=== PATIENT | female | born 2000 | race Caucasian/White ===

== ENCOUNTER 2019-06-11 16:50 | Emergency (ER) | payer BC ==
[2019-06-11] MEDS ORDERED: HYDROmorphone 1 MG/ML Syringe IM ONE (18:36)
[2019-06-11] MEDS ORDERED: Ketorolac 60 MG/2 ML SDV IM ONE (18:37)
--- NOTE | 2019-06-11 18:42 | EDM.PDOC ---
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 She did not hit her head or hurt her neck. She has pin to her tail bone and to her low back. She had some sciatica in the past. She has no pain shooting down her leg. She has no numbness or weakness. She has no bowel or bladder symptoms. Onset: Sudden Duration: Hour(s): Location: Reports: Back (and tailbone) Quality: Reports: Sharp Severity: Severe Improves with: Reports: Immobilization Worsens with: Reports: Movement Context: Reports: Trauma (Slipped and fell) Associated Symptoms: Reports: No Other Symptoms Lower Sacral Pain Score (Numeric/FACES): 9 - Related Data Allergies Allergy/AdvReac Type Severity Reaction Status Date / Time amoxicillin Allergy Hives Verified 06/11/19 17:09 Penicillins Allergy Hives Verified 06/11/19 17:09 Home Meds: Home Meds . [No Known Home Meds] 06/11/19 [History] Past Medical History - Past Surgical History GI Surgical History: Reports: Appendectomy Social & Family History - Tobacco Use Smoking Status *Q: Never Smoker - Caffeine Use Caffeine Use: Reports: Soda - Recreational Drug Use Recreational Drug Use: No ED ROS GENERAL - Review of Systems Review Of Systems: See Below Constitutional: Reports: No Symptoms HEENT: Reports: No Symptoms Respiratory: Reports: No Symptoms Cardiovascular: Reports: No Symptoms Endocrine: Reports: No Symptoms GI/Abdominal: Reports: No Symptoms : Reports: No Symptoms Musculoskeletal: Reports: Back Pain (and tail bone) ED EXAM,LOWER BACK PAIN/INJURY - Physical Exam Exam: See Below Exam Limited By: No Limitations General Appearance: Alert, No Apparent Distress Ears: Normal External Exam Nose: Normal Inspection Head: Atraumatic, Normocephalic Neck: Normal Inspection, Supple Respiratory/Chest: No Respiratory Distress, Lungs Clear, Normal Breath Sounds Cardiovascular: Regular Rate, Rhythm, No Edema, No Murmur GI/Abdominal: Soft, Non-Tender, No Organomegaly, No Mass Back Exam: Other (Pain upon palpation to the lumbar spine with pain to the coccyx.) Extremities: Normal Inspection Neurological: No Motor/Sensory Deficits, Oriented x 3 Course - Vital Signs Last Recorded V/S: Last Vital Signs Temp 97.2 F 06/11/19 17:07 Pulse 62 06/11/19 17:07 Resp 16 06/11/19 17:07 BP 105/63 06/11/19 17:07 Pulse Ox 99 06/11/19 17:07 - Orders/Labs/Meds Orders: Active Orders 24 hr Category Date Time Status Lumbar Spine 2 or 3V [CR] Stat Exams 06/11/19 17:52 Taken Sacrum Coccyx Min 2V [CR] Stat Exams 06/11/19 17:52 Taken HYDROmorphone [Dilaudid] Med 06/11/19 18:36 Once 1 mg IM ONETIME ONE Ketorolac [Toradol] Med 06/11/19 18:37 Once 60 mg IM ONETIME ONE - Re-Assessments/Exams Free Text/Narrative Re-Assessment/Exam: 06/11/19 18:40 I ordered an x-ray of her lumbar spine and sacrum and coccyx. He lumbar spine is negative. Her sacrum and coccyx shows a fracture of the tip of the coccyx. I have ordered a shot of dilaudid 1mg IM and toradol 60mg IM. I will give her something for pain at home. Departure - Departure Time of Disposition: 18:45 Disposition: Home, Self-Care 01 Condition: Good Clinical Impression: Fall Qualifiers: Encounter type: initial encounter Qualified Code(s): W19.XXXA - Unspecified fall, initial encounter Low back pain Qualifiers: Chronicity: acute Back pain laterality: bilateral Sciatica presence: without sciatica Qualified Code(s): M54.5 - Low back pain Fractured coccyx Qualifiers: Encounter type: initial encounter Fracture type: closed Qualified Code(s): S32.2XXA - Fracture of coccyx, initial encounter for closed fracture - Discharge Information *PRESCRIPTION DRUG MONITORING PROGRAM REVIEWED*: No *COPY OF PRESCRIPTION DRUG MONITORING REPORT IN PATIENT DAVID: No Referrals: PCP,None [Primary Care Provider] - Jesus Aragon PA-C [Physician Lock Up Worker] - 1 Week Additional Instructions: Ice the areas that hurt for 15 minutes 3 times per day for 2 days. Take tylenol or motrin for pain. If that does not help, take the flexeril a muscle relaxer or hydrocodone for pain. Get a donut pillow to sit on. Please return if you are worse. Sepsis Event Note - Evaluation Sepsis Screening Result: No Definite Risk - Focused Exam Vital Signs: Vital Signs Temp Pulse Resp BP Pulse Ox 06/11/19 17:07 97.2 F 62 16 105/63 99 Date Exam was Performed: 06/11/19 Time Exam was Performed: 18:37 - My Orders Last 24 Hours: My Active Orders 06/11/19 17:52 Lumbar Spine 2 or 3V [CR] Stat Sacrum Coccyx Min 2V [CR] Stat 06/11/19 18:36 HYDROmorphone [Dilaudid] 1 mg IM ONETIME ONE 06/11/19 18:37 Ketorolac [Toradol] 60 mg IM ONETIME ONE - Assessment/Plan Last 24 Hours: My Active Orders 06/11/19 17:52 Lumbar Spine 2 or 3V [CR] Stat Sacrum Coccyx Min 2V [CR] Stat 06/11/19 18:36 HYDROmorphone [Dilaudid] 1 mg IM ONETIME ONE 06/11/19 18:37 Ketorolac [Toradol] 60 mg IM ONETIME ONE
--- NOTE | 2019-06-12 10:51 | CR ---
Lumbar spine: AP and lateral views of the lumbar spine were obtained. Comparison: No prior lumbar spine imaging. Vertebral body heights and disc spaces are maintained. Pedicles are intact. Visualized transverse and spinous processes are intact. No subluxation or fracture is seen. Impression: 1. No abnormality is identified on two-view lumbar spine study. Diagnostic code #1 This report was dictated in [place] Standard Time
--- NOTE | 2019-06-12 10:51 | CR ---
Sacrum and coccyx: Three views of the sacrum and coccyx were obtained. Comparison: No previous study. Mild joint space narrowing within the left sacroiliac joint as compared to the right side felt compatible with mild sacroiliitis. No acute fracture, dislocation or other bony abnormality is seen. Impression: 1. Findings suggest mild unilateral sacroiliitis on the left side. Please correlate if patient has any symptoms to this area. 2. No acute fracture is appreciated. Diagnostic code #2 This report was dictated in [place] Standard Time
== END 2019-06-11 19:11 | disposition home or self-care (01) ==
LOC: JD.ED 16:50
DX: S32.2XXA Fracture of coccyx, initial encounter for closed fracture (principal); Z88.0 Allergy status to penicillin; Z88.1 Allergy status to other antibiotic agents; V58.4XXA Person boarding or alighting a pick-up truck or van injured in noncollision transport accident, initial encounter
CPT/HCPCS: 72100; 72220; 96372; 99283; J1170; J1885

== ENCOUNTER 2019-12-26 13:15 | Emergency (ER) | payer BC ==
[2019-12-26] MEDS ORDERED: Sodium Chloride 0.9% 1,000 ML IV STA (13:41)
[2019-12-26] MEDS ORDERED: Sodium Chloride 0.9% 10 ML Syringe FLUSH PRN (13:41)
[2019-12-26] MEDS ORDERED: Ondansetron 4 MG/2 ML SDV IVPUSH ONE (13:41)
[2019-12-26] MEDS ORDERED: HYDROmorphone 1 MG/ML Syringe IVPUSH ONE (13:42)
--- NOTE | 2019-12-26 15:34 | EDM.PDOC ---
ED HPI GENERAL MEDICAL PROBLEM - General Chief Complaint: Gastrointestinal Problem Stated Complaint: VOMITING,DIARRHEA,ABD PAIN AND NAUSEA Time Seen by Provider: 12/26/19 13:38 Source of Information: Reports: Patient History Limitations: Reports: No Limitations - History of Present Illness INITIAL COMMENTS - FREE TEXT/NARRATIVE: The patient presents with generalized abdominal pain, nausea or vomiting. This started this morning. She has chills but no fever. She has body aches also. She has no cough, congestion, runny nose, chest pain or shortness of breath. She has no dysuria or diarrhea. She has no appendix. At one time her doctor thought she had endometriosis. She was checked and that was negative. She will get abdominal pain like this at times. Onset: Gradual Duration: Hour(s): Location: Reports: Abdomen Quality: Reports: Sharp Severity: Moderate Improves with: Reports: None Worsens with: Reports: None Associated Symptoms: Reports: Fever/Chills, Nausea/Vomiting. 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 Denies: Fever HEENT: Reports: No Symptoms Respiratory: Reports: No Symptoms Cardiovascular: Reports: No Symptoms Endocrine: Reports: No Symptoms GI/Abdominal: Reports: Abdominal Pain, Nausea, Vomiting. Denies: Diarrhea : Reports: No Symptoms Musculoskeletal: Reports: No Symptoms Skin: Reports: No Symptoms ED EXAM, GI/ABD - Physical Exam Exam: See Below Exam Limited By: No Limitations General Appearance: Alert, No Apparent Distress Ears: Normal External Exam Nose: Normal Inspection Head: Atraumatic, Normocephalic Neck: Normal Inspection Respiratory/Chest: No Respiratory Distress, Lungs Clear, Normal Breath Sounds Cardiovascular: Regular Rate, Rhythm, No Edema, No Murmur GI/Abdominal Exam: Soft, No Organomegaly, No Mass, Tender (Mild generalied tenderness) Course - Vital Signs Last Recorded V/S: Last Vital Signs Temp 101.7 F H 12/26/19 14:28 Pulse 85 12/26/19 14:28 Resp 18 12/26/19 14:28 BP 99/54 L 12/26/19 14:28 Pulse Ox 98 12/26/19 14:28 - Orders/Labs/Meds Orders: Active Orders 24 hr Category Date Time Status Peripheral IV Care [RC] . DIRECTED Care 12/26/19 13:41 Active WET PREP [MYC] Stat Lab 12/26/19 15:30 Received Sodium Chloride 0.9% [Saline Flush] Med 12/26/19 13:41 Active 10 ml FLUSH ASDIRECTED PRN ED Antiemetic Medication Reflex [OM.PC] Stat Oth 12/26/19 13:41 Ordered Peripheral IV Insertion Adult [OM.PC] Stat Oth 12/26/19 13:41 Ordered Medication Orders Sodium Chloride (Saline Flush) 10 ml FLUSH ASDIRECTED PRN PRN Reason: Keep Vein Open Last Admin: 12/26/19 14:24 Dose: 10 ml Documented by: CHRIS Labs: Laboratory Tests 12/26/19 12/26/19 12/26/19 Range/Units 13:41 14:10 14:10 WBC 10.00 (3.98-10.04) K/mm3 RBC 4.68 (3.98-5.22) M/mm3 Hgb 12.8 (11.2-15.7) gm/dl Hct 39.2 (34.1-44.9) % MCV 83.8 (79.4-94.8) fl MCH 27.4 (25.6-32.2) pg MCHC 32.7 (32.2-35.5) g/dl RDW Std Deviation 41.1 (36.4-46.3) fL Plt Count 347 D (182-369) K/mm3 MPV 9.5 (9.4-12.3) fl Neut % (Auto) 92.1 H (34.0-71.1) % Lymph % (Auto) 4.6 L (19.3-51.7) % [place] % (Auto) 3.1 L (4.7-12.5) % Eos % (Auto) 0 L (0.7-5.8) Baso % (Auto) 0.0 L (0.1-1.2) % Neut # (Auto) 9.21 H (1.56-6.13) K/mm3 Lymph # (Auto) 0.46 L (1.18-3.74) K/mm3 [place] # (Auto) 0.31 (0.24-0.36) K/mm3 Eos # (Auto) 0.00 L (0.04-0.36) K/mm3 Baso # (Auto) 0.00 L (0.01-0.08) K/mm3 Manual Slide Review Abnormal smear Sodium 138 (136-145) mEq/L Potassium 3.6 (3.5-5.1) mEq/L Chloride 103 (98-107) mEq/L Carbon Dioxide 26 (21-32) mEq/L Anion Gap 12.6 (5-15) BUN 11 (7-18) mg/dL Creatinine 0.9 (0.55-1.02) mg/dL Est Cr Clr Drug Dosing 89.72 mL/min Estimated GFR (MDRD) > 60 (>60) mL/min BUN/Creatinine Ratio 12.2 L (14-18) Glucose 87 (74-106) mg/dL Calcium 9.0 (8.5-10.1) mg/dL Total Bilirubin 0.5 (0.2-1.0) mg/dL AST 14 L (15-37) U/L ALT 18 (14-59) U/L Alkaline Phosphatase 99 (46-116) U/L Total Protein 7.6 (6.4-8.2) g/dl Albumin 3.7 (3.4-5.0) g/dl Globulin 3.9 gm/dL Albumin/Globulin Ratio 1.0 (1-2) Lipase 58 L (73-393) U/L HCG, Qual (NEGATIVE) Urine Color Yellow (Yellow) Urine Appearance Clear (Clear) Urine pH 6.5 (5.0-8.0) Ur Specific [place] > or = 1.030 (1.005-1.030) Urine Protein Negative (Negative) Urine Glucose (UA) Negative (Negative) Urine Ketones 2+ H (Negative) Urine Occult Blood Negative (Negative) Urine Nitrite Negative (Negative) Urine Bilirubin 1+ H (Negative) Urine Urobilinogen 1.0 (0.2-1.0) Ur Leukocyte Esterase 3+ H (Negative) Urine RBC 0-5 (0-5) /hpf Urine WBC 10-20 H (0-5) /hpf Ur Squamous Epith Cells 0-5 (0-5) /hpf Amorphous Sediment Many H (NOT SEEN) /hpf Urine Bacteria Few (FEW) /hpf Urine Mucus Rare (FEW) /hpf 12/26/19 Range/Units 14:10 WBC (3.98-10.04) K/mm3 RBC (3.98-5.22) M/mm3 Hgb (11.2-15.7) gm/dl Hct (34.1-44.9) % MCV (79.4-94.8) fl MCH (25.6-32.2) pg MCHC (32.2-35.5) g/dl RDW Std Deviation (36.4-46.3) fL Plt Count (182-369) K/mm3 MPV (9.4-12.3) fl Neut % (Auto) (34.0-71.1) % Lymph % (Auto) (19.3-51.7) % [place] % (Auto) (4.7-12.5) % Eos % (Auto) (0.7-5.8) Baso % (Auto) (0.1-1.2) % Neut # (Auto) (1.56-6.13) K/mm3 Lymph # (Auto) (1.18-3.74) K/mm3 [place] # (Auto) (0.24-0.36) K/mm3 Eos # (Auto) (0.04-0.36) K/mm3 Baso # (Auto) (0.01-0.08) K/mm3 Manual Slide Review Sodium (136-145) mEq/L Potassium (3.5-5.1) mEq/L Chloride (98-107) mEq/L Carbon Dioxide (21-32) mEq/L Anion Gap (5-15) BUN (7-18) mg/dL Creatinine (0.55-1.02) mg/dL Est Cr Clr Drug Dosing mL/min Estimated GFR (MDRD) (>60) mL/min BUN/Creatinine Ratio (14-18) Glucose (74-106) mg/dL Calcium (8.5-10.1) mg/dL Total Bilirubin (0.2-1.0) mg/dL AST (15-37) U/L ALT (14-59) U/L Alkaline Phosphatase (46-116) U/L Total Protein (6.4-8.2) g/dl Albumin (3.4-5.0) g/dl Globulin gm/dL Albumin/Globulin Ratio (1-2) Lipase (73-393) U/L HCG, Qual Negative (NEGATIVE) Urine Color (Yellow) Urine Appearance (Clear) Urine pH (5.0-8.0) Ur Specific [place] (1.005-1.030) Urine Protein (Negative) Urine Glucose (UA) (Negative) Urine Ketones (Negative) Urine Occult Blood (Negative) Urine Nitrite (Negative) Urine Bilirubin (Negative) Urine Urobilinogen (0.2-1.0) Ur Leukocyte Esterase (Negative) Urine RBC (0-5) /hpf Urine WBC (0-5) /hpf Ur Squamous Epith Cells (0-5) /hpf Amorphous Sediment (NOT SEEN) /hpf Urine Bacteria (FEW) /hpf Urine Mucus (FEW) /hpf Meds: Medications Generic Name Dose Route Start Last Admin Trade Name Freq PRN Reason Stop Dose Admin Sodium Chloride 10 ml 12/26/19 13:41 12/26/19 14:24 Saline Flush FLUSH 10 ml ASDIRECTED PRN Administration Keep Vein Open Discontinued Medications Generic Name Dose Route Start Last Admin Trade Name Freq PRN Reason Stop Dose Admin Hydromorphone HCl 1 mg 12/26/19 13:42 12/26/19 14:22 Dilaudid IVPUSH 12/26/19 13:43 1 mg ONETIME ONE Administration Sodium Chloride 1,000 mls @ 1,000 mls/hr 12/26/19 13:41 12/26/19 14:24 Normal Saline IV 12/26/19 14:40 1,000 mls/hr .BOLUS STA Administration Ondansetron HCl 4 mg 12/26/19 13:41 12/26/19 14:20 Zofran IVPUSH 12/26/19 13:42 4 mg ONETIME ONE Administration - Re-Assessments/Exams Free Text/Narrative Re-Assessment/Exam: 12/26/19 15:39 I ordered an IV NS 1L bolus, zofran 4mg IV, dilaudid 1mg IV, labs and UA. Her CBC and CMP look good. Her UA shows a UTI. She felt like she had a yeast infection. I ordered a Wet Prep. Departure - Departure Time of Disposition: 16:15 Disposition: Home, Self-Care 01 Condition: Good Clinical Impression: UTI, Urinary tract infectious disease - Discharge Information *PRESCRIPTION DRUG MONITORING PROGRAM REVIEWED*: Not Applicable *COPY OF PRESCRIPTION DRUG MONITORING REPORT IN PATIENT DAVID: Not Applicable Prescriptions: cephALEXin [Keflex] 500 mg PO BID #10 capsule Ondansetron [Zofran ODT] 4 mg PO Q6H PRN #20 tab.dis PRN Reason: Nausea\vomiting Referrals: Jennifer Valle SEATING CAPTAIN [Primary Care Provider] - Forms: ED Department Discharge Additional Instructions: Drink plenty of fluids. Take keflex 2 times daily for 5 days. Take the zofran every 6 hours as needed for nausea and vomiting. Please return if you are worse. Sepsis Event Note (ED) - Evaluation Sepsis Screening Result: No Definite Risk - Focused Exam Vital Signs: Vital Signs Temp Pulse Resp BP Pulse Ox 12/26/19 14:28 101.7 F H 85 18 99/54 L 98 12/26/19 13:39 99.1 F 90 16 117/67 98 - My Orders Last 24 Hours: My Active Orders 12/26/19 13:41 Peripheral IV Care [RC] . DIRECTED Sodium Chloride 0.9% [Saline Flush] 10 ml FLUSH ASDIRECTED PRN ED Antiemetic Medication Reflex [OM.PC] Stat Peripheral IV Insertion Adult [OM.PC] Stat 12/26/19 15:30 WET PREP [MYC] Stat - Assessment/Plan Last 24 Hours: My Active Orders 12/26/19 13:41 Peripheral IV Care [RC] . DIRECTED Sodium Chloride 0.9% [Saline Flush] 10 ml FLUSH ASDIRECTED PRN ED Antiemetic Medication Reflex [OM.PC] Stat Peripheral IV Insertion Adult [OM.PC] Stat 12/26/19 15:30 WET PREP [MYC] Stat
[2019-12-26] MEDS ORDERED: Fluconazole 150 MG Tab PO ONE (16:28)
[2019-12-26] MEDS ORDERED: Acetaminophen 325 MG Tab PO ONE (16:51)
== END 2019-12-26 17:00 | disposition home or self-care (01) ==
LOC: JD.ED 13:15
DX: N39.0 Urinary tract infection, site not specified (principal); Z87.891 Personal history of nicotine dependence; Z90.49 Acquired absence of other specified parts of digestive tract; Z88.1 Allergy status to other antibiotic agents; Z88.0 Allergy status to penicillin
CPT/HCPCS: 36415; 80053; 81001; 83690; 84703; 85025; 87210; 87808; 96361; 96374; 96375; 99284; A9270; J1170; J2405; J7030

== ENCOUNTER 2020-01-12 14:13 | Emergency (ER) | payer BC ==
[2020-01-12] MEDS ORDERED: Clindamycin Phosphate in D5W 900 MG in Premix Bag 1 BAG IV ONE ×2 (14:21)
[2020-01-12] MEDS ORDERED: Sodium Chloride 0.9% 10 ML Syringe FLUSH PRN (14:21)
[2020-01-12] MEDS ORDERED: Sodium Chloride 0.9% 1,000 ML IV ONE (14:22)
[2020-01-12] MEDS ORDERED: Ondansetron 4 MG/2 ML SDV IVPUSH ONE (14:22)
[2020-01-12] MEDS ORDERED: HYDROmorphone 0.5 MG/0.5 ML Syringe IVPUSH ONE (15:18)
--- NOTE | 2020-01-12 15:27 | EDM.PDOC ---
ED HPI GENERAL MEDICAL PROBLEM - General Chief Complaint: ENT Problem Stated Complaint: SORE THROAT/TONSILS Time Seen by Provider: 01/12/20 14:20 Source of Information: Reports: Patient, Provider (Kathy Retana from [facility]), RN Notes Reviewed History Limitations: Reports: No Limitations - History of Present Illness INITIAL COMMENTS - FREE TEXT/NARRATIVE: Patient is a 19-year-old female who presents to the ED for evaluation of sore throat and tonsillitis. Patient was diagnosed with right-sided tonsillitis yesterday at the [facility] by Christie Retana, she was given a shot of Rocephin, and then sent home with a azithromycin. Patient states she took her a azithromycin this morning, but said about an hour later, she began to feel overly nauseous and was not able to keep the antibiotics down, she did call the provider, who had her come back into the clinic to be seen, and they decided they needed to send her here for further management. Patient states her throat feels like it is more swollen today, she does note a slight fever at home, a cough, along with a sore throat. Patient does note that she has a history of tonsil stones, but she states this is exquisitely worse. She has not really been able to eat much of anything for the past 3 days due to the pain and swelling. Patient states that she has to breathe through her mouth, she is very congested nasally and it is making her hard to breathe. Patient denies any possible COVID exposures, but has not been tested for this as well. Patient states there is some pain radiating into her ear as well. Christie Retana did call ENT in [place], and they recommended getting clindamycin, 900 IV, and then sending patient home with 450 mg 3 times daily orally;if deemed fit for outpatient management, along with a throat culture for further evaluation. Patient also notes that her daughter has been recently diagnosed Haemophilus parainfluenza; and has been treated, but her daughter seems to be doing better. Patient denies any chance of . 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: : 1 Para: 1 Psychiatric History: Reports: Anxiety, Depression - Past Surgical History GI Surgical History: Reports: Appendectomy Social & Family History - Family History Family Medical History: Noncontributory Cardiac: Reports: [place] Psychiatric: Reports: Depression - Tobacco Use Smoking Status *Q: Never Smoker Second Hand Smoke Exposure: No - Caffeine Use Caffeine Use: Reports: Soda - Recreational Drug Use Recreational Drug Use: Yes Recreational Drug Type: Reports: Marijuana/Hashish Recreational Drug Use Frequency: Weekly ED ROS ENT - Review of Systems Review Of Systems: Comprehensive ROS is negative, except as noted in HPI. ED EXAM, ENT - Physical Exam Exam: See Below Exam Limited By: No Limitations General Appearance: Alert, WD/WN, No Apparent Distress Eye Exam: Bilateral Eye: EOMI, Normal Inspection, PERRL Ears: Normal External Exam, Normal Canal, Hearing Grossly Normal, Normal TMs Nose: Normal Inspection Mouth/Throat: Normal Inspection, Normal Gums, Normal Lips, Normal Teeth, Tonsillar Erythema (right tonsil only), Tonsillar Exudates (right tonsil there is some white exudate, along with a amado/black in color exudate as well. The whole right-sided tonsil is very large, and approaches midline throat, there is no uvular deviation associated. Patient states that it is very difficult to swallow due to the pain and swelling.). No: Trismus, Uvular Deviation Head: Atraumatic, Normocephalic Neck: Normal Inspection, Supple, Non-Tender, Full Range of Motion Respiratory/Chest: No Respiratory Distress, Lungs Clear, Normal Breath Sounds, No Accessory Muscle Use, Chest Non-Tender Cardiovascular: Normal Peripheral Pulses, Regular Rate, Rhythm, No Murmur Extremities: Normal Inspection, Normal Capillary Refill Neurological: Alert, Oriented, Normal Cognition, No Motor/Sensory Deficits Psychiatric: Normal Affect, Normal Mood Skin: Warm, Dry, Intact, Normal Color, No Rash Course - Vital Signs Last Recorded V/S: Last Vital Signs Temp 97.8 F 01/12/20 15:35 Pulse 88 01/12/20 15:35 Resp 18 01/12/20 15:35 BP 108/77 01/12/20 15:35 Pulse Ox 97 01/12/20 15:35 - Orders/Labs/Meds Orders: Active Orders 24 hr Category Date Time Status Peripheral IV Care [RC] . DIRECTED Care 01/12/20 14:21 Ordered Soft Tissue Neck w Cont [CT] Stat Exams 01/12/20 15:18 Ordered CORONAVIRUS COVID-19 PCR PHL Routine Lab 01/12/20 14:35 Ordered CULTURE THROAT [RM] Stat Lab 01/12/20 14:21 Ordered Sodium Chloride 0.9% [Saline Flush] Med 01/12/20 14:21 Active 10 ml FLUSH ASDIRECTED PRN Peripheral IV Insertion Adult [OM.PC] Routine Oth 01/12/20 14:21 Ordered Medication Orders Sodium Chloride (Saline Flush) 10 ml FLUSH ASDIRECTED PRN PRN Reason: Keep Vein Open Last Admin: 01/12/20 14:33 Dose: 10 ml Documented by: LINDSEY Labs: Laboratory Tests 01/12/20 01/12/20 01/12/20 Range/Units 14:30 14:30 14:30 WBC 7.59 (3.98-10.04) K/mm3 RBC 4.75 (3.98-5.22) M/mm3 Hgb 13.1 (11.2-15.7) gm/dl Hct 39.8 (34.1-44.9) % MCV 83.8 (79.4-94.8) fl MCH 27.6 (25.6-32.2) pg MCHC 32.9 (32.2-35.5) g/dl RDW Std Deviation 41.6 (36.4-46.3) fL Plt Count 334 (182-369) K/mm3 MPV 9.4 (9.4-12.3) fl Neutrophils % (Manual) 67 H (40-60) % Band Neutrophils % 0 (0-10) % Lymphocytes % (Manual) 18 L (20-40) % Atypical Lymphs % 0 % Monocytes % (Manual) 15 H (2-10) % Eosinophils % (Manual) 0 L (0.7-5.8) % Basophils % (Manual) 0 L (0.1-1.2) Platelet Estimate Adequate Anisocytosis 1+ slight RBC Morph Comment Not Reportable Sodium 137 (136-145) mEq/L Potassium 3.5 (3.5-5.1) mEq/L Chloride 98 (98-107) mEq/L Carbon Dioxide 25 (21-32) mEq/L Anion Gap 17.5 H (5-15) BUN 14 (7-18) mg/dL Creatinine 0.8 (0.55-1.02) mg/dL Est Cr Clr Drug Dosing 100.94 mL/min Estimated GFR (MDRD) > 60 (>60) mL/min BUN/Creatinine Ratio 17.5 (14-18) Glucose 81 (74-106) mg/dL Calcium 9.5 (8.5-10.1) mg/dL Total Bilirubin 0.5 (0.2-1.0) mg/dL AST 12 L (15-37) U/L ALT 18 (14-59) U/L Alkaline Phosphatase 82 (46-116) U/L Total Protein 8.3 H (6.4-8.2) g/dl Albumin 3.8 (3.4-5.0) g/dl Globulin 4.5 gm/dL Albumin/Globulin Ratio 0.8 L (1-2) Monoscreen Negative (NEGATIVE) Meds: Medications Generic Name Dose Route Start Last Admin Trade Name Freq PRN Reason Stop Dose Admin Sodium Chloride 10 ml 01/12/20 14:21 01/12/20 14:33 Saline Flush FLUSH 10 ml ASDIRECTED PRN Administration Keep Vein Open Discontinued Medications Generic Name Dose Route Start Last Admin Trade Name Freq PRN Reason Stop Dose Admin Hydromorphone HCl 0.5 mg 01/12/20 15:18 01/12/20 15:30 Dilaudid IVPUSH 01/12/20 15:19 0.5 mg ONETIME ONE Administration Clindamycin Phosphate 900 mg/ 50 mls @ 100 mls/hr 01/12/20 14:21 01/12/20 14:41 Premix IV 01/12/20 14:50 100 mls/hr ONETIME ONE Administration Sodium Chloride 1,000 mls @ 999 mls/hr 01/12/20 14:22 01/12/20 14:41 Normal Saline IV 01/12/20 15:22 999 mls/hr ONETIME ONE Administration Iopamidol 100 ml 01/12/20 15:37 01/12/20 16:12 Isovue-300 (61%) IVPUSH 01/12/20 15:38 80 ml ONETIME ONE Administration Ketorolac Tromethamine 30 mg 01/12/20 15:38 01/12/20 16:41 Toradol IVPUSH 01/12/20 15:39 30 mg ONETIME ONE Administration Ondansetron HCl 4 mg 01/12/20 14:22 01/12/20 14:41 Zofran IVPUSH 01/12/20 14:23 4 mg ONETIME ONE Administration - Re-Assessments/Exams Free Text/Narrative Re-Assessment/Exam: 01/12/20 15:25 Patient presents to the ED for the evaluation of her ongoing throat issues. Have ordered the clindamycin, IV fluids, 4 mg Zofran, 0.5 mg IV Dilaudid, along with a throat culture, CBC and CMP for initial management patient will be screened for COVID. I do highly suspect the patient might need hospitalization, for fluids and other IV antibiotics and/or pain medication, as she has not really eaten in the last 3 days. She does live quite far away from any sort of clinical care, and it is approaching the weekend and there will not be easy access to emergent management should she need it. Soft tissue neck CT with contrast will also be ordered to rule out peritonsillar abscess in nature. 01/12/20 16:21 CT demonstrates 1.2cm right palatine tonsillar abscess. Bilateral lymphadenopathy in the jugular chains measuring up to 1.7 cm in short axis. Right jugular chain contains more prominent lymph nodes on the left. 01/12/20 16:36 I did contact [facility], and was in contact with ENT, Dr. Ivory with regards of the CT results, and she is still strongly believe the patient can be sent home with oral antibiotics after the IV fluids have been done. She states if the patient is having difficulty swallowing due to the pain, we can try to give her some for pain as well. I will go over these results with the patient, and see what she would like to go forward with. Departure - Departure Time of Disposition: 16:56 Disposition: Home, Self-Care 01 Condition: Good Clinical Impression: Tonsillar abscess - Discharge Information *PRESCRIPTION DRUG MONITORING PROGRAM REVIEWED*: No *COPY OF PRESCRIPTION DRUG MONITORING REPORT IN PATIENT DAVID: No Prescriptions: clindamycin HCL [Clindamycin HCl] 450 mg PO TID 7 Days #63 capsule Ibuprofen 600 mg PO Q6H #28 tablet Acetaminophen/HYDROcodone [[place] 325-10 MG] 1 tab PO Q6H #12 tablet Instructions: Peritonsillar Abscess, [id number] Referrals: Jennifer Valle FURNITURE REPAIR TECHNICIAN [Primary Care Provider] - Forms: ED Department Discharge Additional Instructions: You were evaluated in the ER today regarding your ongoing throat pain. You did have a throat culture done at today's visit, this will take 24 to 48 hours to result completely, you will be called and made notified of the results of this culture. Laboratory evaluation done today demonstrated no acute worrisome abnormalities. You did receive 1 L of IV fluid, a little bit of pain medication in the ER, and a soft tissue neck CT which did reveal a 1.2 cm right tonsillar abscess. You were given IV clindamycin per the ENTs recommendation, and also given a prescription for outpatient oral antibiotics, to continue the clindamycin. You were given a prescription for a strong pain medication, hydrocodone/acetaminophen 5/325mg, please take 1 tab every 6 hours as needed for pain not relieved by Tylenol or ibuprofen alone. Please note this medication does contain Tylenol in it, so do not take more than 4000 mg in a 24-hour time span. These medications can be addictive, so please take as few as possible to achieve adequate pain control. These meds can also be quite constipating, recommend that you increase your oral fluid intake and take a stool softener like MiraLAX while taking these medications. Do not drive while taking this medication. Highly recommend you also take ibuprofen for inflammation relief in the throat, 600 mg ibuprofen every 6 hours as needed for pain relief/inflammation relief, do not exceed 3200 mg of ibuprofen in a 24-hour time span. Recommend you stick to a clear liquid diet over the next 24 to 48 hours, advance to a soft diet as tolerated until the pain in her throat seems to subside enough so you can eat a regular meal. Recommend you follow-up with Christie Retana, or the [facility], sometime next week to make sure that things are getting better. Regarding your recurrent infection in your tonsils, you should be able to follow-up with any ENT, for further management to have these removed when they are not infected. You also had a COVID-19 swab taken, this will be sent to the [facility], to have this performed. We send swabs 1 time a day, to the [facility], so it will get sent tomorrow afternoon, you should likely have results within 48 to 72 hours hopefully. Recommend you go home and try to self isolate, until you know the results of the swab. Please return to the ER at any time if your symptoms change or worsen. Sepsis Event Note (ED) - Evaluation Sepsis Screening Result: Possible Sepsis Risk - Focused Exam Vital Signs: Vital Signs Temp Pulse Resp BP Pulse Ox 01/12/20 15:35 97.8 F 88 18 108/77 97 01/12/20 14:19 97.9 F 100 18 118/76 99 - My Orders Last 24 Hours: My Active Orders 01/12/20 14:21 Peripheral IV Care [RC] . DIRECTED CULTURE THROAT [RM] Stat Sodium Chloride 0.9% [Saline Flush] 10 ml FLUSH ASDIRECTED PRN Peripheral IV Insertion Adult [OM.PC] Routine 01/12/20 14:35 CORONAVIRUS COVID-19 PCR PHL Routine 01/12/20 15:18 Soft Tissue Neck w Cont [CT] Stat - Assessment/Plan Last 24 Hours: My Active Orders 01/12/20 14:21 Peripheral IV Care [RC] . DIRECTED CULTURE THROAT [RM] Stat Sodium Chloride 0.9% [Saline Flush] 10 ml FLUSH ASDIRECTED PRN Peripheral IV Insertion Adult [OM.PC] Routine 01/12/20 14:35 CORONAVIRUS COVID-19 PCR PHL Routine 01/12/20 15:18 Soft Tissue Neck w Cont [CT] Stat
[2020-01-12] MEDS ORDERED: Iopamidol 612 MG/ML 100 ML Bottle IVPUSH ONE (15:37)
[2020-01-12] MEDS ORDERED: Ketorolac 30 MG/ML SDV IVPUSH ONE (15:38)
--- NOTE | 2020-01-14 10:22 | CT ---
CT neck Technique: Multiple axial sections through the neck were obtained. Reconstructed coronal and sagittal images were obtained. Intravenous contrast was utilized. Findings: Thyroid gland appears within normal limits. Submandibular and parotid salivary glands appear within normal limits. Parapharyngeal soft tissues show soft tissue swelling on the right side with small low density finding measuring about 1.0 cm within the right palatine fossil region compatible with small developing abscess. Slight edema is also noted within the left palatine fossa region. Uvula is swollen. Prevertebral soft tissues and epiglottis appear normal. Slightly prominent lymph nodes are seen. Largest lymph node on the right side located lateral to the perivascular space measuring 1.7 cm. Bone window settings were reviewed which shows no acute osseous finding. Impression: 1. Soft tissue swelling within the right palatine fossa with lesser edema within the left palatine fossa region. 2. Small developing abscess within the right palatine fossa region measuring about 1.0 cm. 3. Adenopathy most prominent on the right side most likely reactive. Diagnostic code #3 This report was dictated in MDT I agree with preliminary report from [facility], finalized on , 5:12 PM Central Daylight Time
== END 2020-01-12 17:37 | disposition home or self-care (01) ==
LOC: JD.ED 14:13
DX: J36 Peritonsillar abscess (principal); Z88.1 Allergy status to other antibiotic agents; Z88.0 Allergy status to penicillin
CPT/HCPCS: 36415; 70491; 80053; 85007; 85027; 86308; 87070; 87635; 96365; 96375; 99284; J1170; J1885; J2405; J3490; J7030; Q9967; 99283; U0002

== ENCOUNTER 2020-01-14 00:09 | Emergency (ER) | payer BC ==
--- NOTE | 2020-01-14 00:46 | EDM.PDOC ---
ED HPI GENERAL MEDICAL PROBLEM - General Chief Complaint: ENT Problem Stated Complaint: ABCESS WOKE UP CHOKING EAR PAIN Time Seen by Provider: 01/14/20 00:19 Source of Information: Reports: Patient History Limitations: Reports: No Limitations - History of Present Illness INITIAL COMMENTS - FREE TEXT/NARRATIVE: Ms. Brewster is a very pleasant 19-year-old woman who, medical records indicate, was seen in this ED this past Wednesday afternoon, 01/12/2020, with a complaint at that time of a sore throat due to tonsillitis. The patient reported that she had been diagnosed with tonsillitis at the [facility] the day prior, given an injection of Rocephin, then sent home with a prescription for azithromycin. She reported that she had taken the azithromycin that morning, but then an hour later, she developed nausea and vomiting. She contacted her provider, who had her return to the clinic, saw her, then directed her to the ED for further evaluation. When seen in the ED on 01/12/2020, she was found to be hemodynamically stable, afebrile, saturating 97% on room air. Work-up included a CBC, CMP, a mononucleosis screening test, and a test for the SARS-CoV-2 virus, all of which were unremarkable. A CT of the soft tissue of the neck with IV contrast found soft tissue swelling and a 1.0 cm developing abscess within the right palatine fossa. She was treated with IV Dilaudid, IV Toradol, IV Zofran, IV clindamycin, and IV fluid. Dr. Ivory, an ENT at [facility], was contacted, and recommended that the patient be discharged home with oral antibiotics. The patient was discharged home with a prescription for clindamycin 450 mg po TID x 7 days and ibuprofen 600 mg po Q6 hrs. The patient now returns the ED stating that she feels like the abscess has gotten larger. She states that it makes her feel like choking. She is also complaining of right ear pain. She states that she has been compliant with the clindamycin, as prescribed. She states that she had a fever of 102.3 degrees 2 days ago, but no fever since. Here in the ED, the patient is found to be hemodynamically stable, afebrile, saturating 100% on room air. Other than the patient's throat pain and fever, the patient denies recent nasal or sinus congestion, cough, dyspnea, chest pain, palpitations, constipation, diarrhea, abdominal pain, urinary symptoms, recent weight gain or weight loss, recent bloody bowel movements or black bowel movements, recent joint aches, headaches, or rashes. The patient's PCP is Jennifer Valle NP. Throat Pain Score (Numeric/FACES): 10 - Related Data Allergies Allergy/AdvReac Type Severity Reaction Status Date / Time amoxicillin Allergy Hives Verified 01/14/20 00:21 Penicillins Allergy Hives Verified 01/14/20 00:21 Home Meds: Home Meds Acetaminophen/HYDROcodone [[place] 325-10 MG] 1 tab PO Q6H #12 tablet 01/12/20 [Rx] Ibuprofen 600 mg PO Q6H #28 tablet 01/12/20 [Rx] clindamycin HCL [Clindamycin HCl] 450 mg PO TID 7 Days #63 capsule 01/12/20 [Rx] Past Medical History Psychiatric History: Reports: Anxiety (untreated), Depression (untreated) - Past Surgical History GI Surgical History: Reports: Appendectomy Social & Family History - Family History Family Medical History: Noncontributory Cardiac: Reports: [place] Psychiatric: Reports: Depression - Tobacco Use Smoking Status *Q: Never Smoker - Caffeine Use Caffeine Use: Reports: Soda - Alcohol Use Alcohol Use History: No - Recreational Drug Use Recreational Drug Use: Yes Drug Use in Last 12 Months: Yes Recreational Drug Type: Reports: Marijuana/Hashish (smokes weekly) - Living Situation & Occupation Living situation: Reports: Single, with Significant Other (Boyfriend), with Family (Daughter) 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 ED EXAM, ENT - Physical Exam Exam: See Below Exam Limited By: No Limitations General Appearance: Alert, WD/WN, No Apparent Distress Eye Exam: Bilateral Eye: EOMI, Normal Inspection Ears: Normal External Exam, Normal Canal, Hearing Grossly Normal, Normal TMs Nose: Normal Inspection, Normal Mucousa, No Blood Mouth/Throat: Normal Gums, Normal Lips, Normal Teeth, Tonsillar Swelling (Right palatine tonsil, with a surface exudate) Head: Atraumatic, Normocephalic Neck: Normal Inspection, Supple, Non-Tender, Full Range of Motion. No: Lymphadenopathy (L), Lymphadenopathy (R) Course - Vital Signs Last Recorded V/S: Last Vital Signs Temp 36.4 C 01/14/20 00:17 Pulse 85 01/14/20 00:17 Resp 16 01/14/20 00:17 BP 136/74 01/14/20 00:17 Pulse Ox 100 01/14/20 00:17 - Re-Assessments/Exams Free Text/Narrative Re-Assessment/Exam: 01/14/20 00:41 As above, the patient has a right palatine tonsillar abscess, and now returns t he ED because she feels that it is getting larger despite taking clindamycin. I am at somewhat of a disadvantage to determine if it is getting any larger, because I have not seen her previously, however, the patient showed me a photograph from yesterday and the day before, and, from my perspective, I do not see that it is getting significantly larger, and while I am sure that it is quite painful, it is not so large that it is threatening respiratory embarrassment. While she states that she had a fever 2 days ago, she is afebrile here in the ED. I offered to repeat a CT scan of the soft tissue of her neck, however, I advised against it, noting that it would be unlikely that there would be a significant enough change to alter the ENTs opinion, and she would incur radiation, particularly to an area that could increase her risk of thyroid cancer. I recommended instead that the patient stay the course with the oral antibiotics, with the plan to refer her to an ENT that she can call Wednesday. The patient agreed. Departure - Departure Time of Disposition: 00:44 Disposition: Home, Self-Care 01 Condition: Good Clinical Impression: Tonsillar abscess - Discharge Information *PRESCRIPTION DRUG MONITORING PROGRAM REVIEWED*: Not Applicable *COPY OF PRESCRIPTION DRUG MONITORING REPORT IN PATIENT DAVID: Not Applicable Referrals: Jennifer Valle NP [Primary Care Provider] - Gamaliel Coyle MD [Ordering Only Provider] - Forms: ED Department Discharge Additional Instructions: You were seen in the emergency room for reevaluation of a right tonsillar abscess. While the abscess is large, it is not so large that it is threatening your airway. A repeat CT scan was offered (although not recommended) and declined. As discussed, we recommend that you continue to take the clindamycin as prescribed, along with [id number] ibuprofen, and your previously prescribed [place], as needed for pain. We recommend that you contact the office of your PCP, Jennifer Valle NP, at [phone] this coming 01/15/2020, to coordinate referring you to an ENT. You have been provided with a number of Dr. Gamaliel Coyle. Make sure if you contact them, that the market development executive understands that you have a tonsillar abscess, and that you are following up from the ER. If any other problems, please do not hesitate to return to the ER. Sepsis Event Note (ED) - Evaluation Sepsis Screening Result: No Definite Risk
== END 2020-01-14 00:55 | disposition home or self-care (01) ==
LOC: JD.ED 00:09
DX: J36 Peritonsillar abscess (principal); Z88.1 Allergy status to other antibiotic agents; Z88.0 Allergy status to penicillin; Z90.49 Acquired absence of other specified parts of digestive tract
CPT/HCPCS: 99282

== ENCOUNTER 2020-03-12 23:55 | Emergency (ER) | payer BC, MEDICAID ==
[2020-03-13] MEDS ORDERED: HYDROmorphone 1 MG/ML Syringe IVPUSH ONE (00:40)
[2020-03-13] MEDS ORDERED: Sodium Chloride 0.9% 1,000 ML IV ONE (00:41)
[2020-03-13] MEDS ORDERED: Ondansetron 4 MG/2 ML SDV IVPUSH ONE (00:41)
--- NOTE | 2020-03-13 00:44 | EDM.PDOC ---
ED HPI GENERAL MEDICAL PROBLEM - General Chief Complaint: ENT Problem Stated Complaint: HAD TONSILS OUT YESTERDAY/CAN'T KEEP ANYTHING DOWN Time Seen by Provider: 03/13/20 00:25 Source of Information: Reports: Patient History Limitations: Reports: No Limitations - History of Present Illness INITIAL COMMENTS - FREE TEXT/NARRATIVE: Ms. Brewster is a very pleasant 19-year-old woman who now presents to the ED with uncontrolled throat pain, nausea, and vomiting, following a tonsillectomy and adenoidectomy, performed at [facility] on 03/11/2020. She states that she was discharged home the same day, with prescriptions for both Phenergan and Canby 10/325, both of which she states she has been taking. She was also advised to take [id number] ibuprofen, which she states she has not been taking. She states that she felt lightheaded at the time of her discharge. She developed nausea and vomiting around 17:30 yesterday, 03/12/2020. She states because of her vomiting, she has not been able to keep her pain medications down, and now her throat is so sore that she can barely swallow. She has not had a fever. No oral blood. The patient states that her boyfriend called her ENTs nurse just prior to their coming to the ED, and was advised to bring the patient to the ED for IV hydration. Here in the ED, the patient is found to be mildly bradycardic at 56 bpm, otherwise, she is hemodynamically stable, afebrile, saturating 100% on room air. Other than her sore throat, nausea, and vomiting, the patient denies having a recent fever, chills, ear pain, nasal or sinus congestion, cough, dyspnea, chest pain, palpitations, constipation, diarrhea, abdominal pain, urinary symptoms, recent weight gain or weight loss, recent bloody bowel movements or black bowel movements, recent joint aches, headaches, or rashes. The patient's PCP is Jennifer Valle NP. Her ENT is Dr. Ramakrishna Gavin. Throat Pain Score (Numeric/FACES): 8 - Related Data Allergies Allergy/AdvReac Type Severity Reaction Status Date / Time amoxicillin Allergy Hives Verified 03/13/20 00:10 Penicillins Allergy Hives Verified 09/16/20 00:10 Home Meds: Home Meds Acetaminophen/HYDROcodone [Canby 325-10 MG] 1 tab PO Q6H #12 tablet 01/12/20 [Rx] Ibuprofen 600 mg PO Q6H #28 tablet 01/12/20 [Rx] Ondansetron [Zofran ODT] 1 tab PO Q8H PRN #10 tab.dis 03/13/20 [Rx] Promethazine [Phenergan] 0.5 ml TOP ASDIRECTED 03/13/20 [History] Past Medical History Psychiatric History: Reports: Anxiety (untreated), Depression (untreated) - Past Surgical History HEENT Surgical History: Reports: Adenoidectomy (03/11/2020), Tonsillectomy (03/11/2020) GI Surgical History: Reports: Appendectomy Social & Family History - Family History Family Medical History: Noncontributory Cardiac: Reports: [place] Psychiatric: Reports: Depression - Tobacco Use Smoking Status *Q: Never Smoker Second Hand Smoke Exposure: No - Caffeine Use Caffeine Use: Reports: Soda - Alcohol Use Alcohol Use History: No - Recreational Drug Use Recreational Drug Use: Yes Drug Use in Last 12 Months: Yes Recreational Drug Type: Reports: Marijuana/Hashish (smokes weekly) - Living Situation & Occupation Living situation: Reports: Single, with Significant Other (Boyfriend), with Family (Daughter) 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 ED EXAM, ENT - Physical Exam Exam: See Below Exam Limited By: No Limitations General Appearance: Alert, WD/WN, Mild Distress (Appears uncomfortable) Eye Exam: Bilateral Eye: EOMI, Normal Inspection Ears: Normal External Exam, Hearing Grossly Normal Nose: Normal Inspection Mouth/Throat: Normal Inspection, Normal Gums, Normal Lips, Normal Teeth, Other (Dumont eschar with mild to moderate swelling of the posterior oropharynx. No active bleeding.) Head: Atraumatic, Normocephalic Neck: Normal Inspection, Supple, Non-Tender, Full Range of Motion. No: Lymphadenopathy (L), Lymphadenopathy (R) Respiratory/Chest: No Respiratory Distress, Lungs Clear, Normal Breath Sounds, No Accessory Muscle Use Cardiovascular: Normal Peripheral Pulses, Regular Rate, Rhythm, No Edema, No Gallop, No JVD, No Murmur, No Rub GI/Abdominal: Normal Bowel Sounds, Soft, Non-Tender, No Organomegaly, No Distention, No Abnormal Bruit, No Mass (Female) Exam: Deferred Rectal (Female) Exam: Deferred Back: Normal Inspection, Full Range of Motion Extremities: Normal Inspection, Normal Range of Motion, No Pedal Edema, Normal Capillary Refill Neurological: Alert, Oriented, Normal Cognition, No Motor/Sensory Deficits Psychiatric: Normal Affect Skin: Warm, Dry, Intact, Normal Color, No Rash Course - Vital Signs Last Recorded V/S: Last Vital Signs Temp 37.0 C 03/13/20 00:04 Pulse 56 L 03/13/20 00:04 Resp 20 03/13/20 00:04 BP 110/63 03/13/20 00:04 Pulse Ox 100 03/13/20 00:04 Orthostatic Blood Pressure [ 105/61 Standing] Orthostatic Blood Pressure [ 101/64 Sitting] Orthostatic Blood Pressure [ 104/55 Supine] - Orders/Labs/Meds Meds: Medications Discontinued Medications Generic Name Dose Route Start Last Admin Trade Name Matt PRN Reason Stop Dose Admin Hydromorphone HCl 1 mg 03/13/20 00:40 03/13/20 00:56 Dilaudid IVPUSH 03/13/20 00:41 1 mg ONETIME ONE Administration Sodium Chloride 1,000 mls @ 999 mls/hr 03/13/20 00:41 03/13/20 00:56 Normal Saline IV 03/13/20 01:41 999 mls/hr ONETIME ONE Administration Ondansetron HCl 4 mg 03/13/20 00:41 03/13/20 00:56 Zofran IVPUSH 03/13/20 00:42 4 mg ONETIME ONE Administration - Re-Assessments/Exams Free Text/Narrative Re-Assessment/Exam: 03/13/20 00:41 As above, the patient underwent a tonsillectomy and adenoidectomy at [facility] on 03/11/2020, and now presents the ED due to nausea, vomiting, and inability to swallow due to pain. She complains of some lightheadedness, and is concerned that she may be dehydrated. On examination, she has expected dumont eschar to the posterior oropharynx, but no other significant abnormalities, and no visible bleeding. I have ordered a work-up that includes orthostatics, IV fluid, IV Dilaudid, and IV Zofran. 03/13/20 02:08 The patient is not orthostatic. She states that she feels somewhat better, although does not believe that the Canby that was prescribed to her is adequate. I will prescribe Zofran that she can take instead of Phenergan, but as for her pain medications, I recommended that she contact her ENT to see if they would be willing to prescribe something stronger. Departure - Departure Time of Disposition: 02:11 Disposition: Home, Self-Care 01 Condition: Good Clinical Impression: Post-tonsillectomy pain, Nausea & vomiting - Discharge Information *PRESCRIPTION DRUG MONITORING PROGRAM REVIEWED*: Not Applicable *COPY OF PRESCRIPTION DRUG MONITORING REPORT IN PATIENT DAVID: Not Applicable Prescriptions: Ondansetron [Zofran ODT] 1 tab PO Q8H PRN #10 tab.dis PRN Reason: Nausea/Vomiting Instructions: Tonsillectomy, Adult, Care After, [id number] Referrals: Jennifer Valle NP [Primary Care Provider] - Ramakrishna Gavin MD [Ordering Only Provider] - Forms: ED Department Discharge Additional Instructions: You were seen in the emergency room for nausea, vomiting, uncontrolled throat pain, and lightheadedness following a tonsillectomy and adenoidectomy on Wednesday. Work-up in the ER included positional blood pressure checks, which returned normal. You are not dehydrated. You were treated with IV fluid, IV Dilaudid, and IV Zofran in the ER. A prescription for the anti-nausea medicine Zofran has been sent to the [facility], located in the [facility] grocery store. You may dissolve 1 tablet of Zofran on your tongue up to every 8 hours, as needed for nausea and vomiting. If you take Zofran, do not also take Phenergan. Stay adequately hydrated. We recommend that you continue to take [id number] ibuprofen, 3 to 4 tablets (600-800 mg) up to every 8 hours, with food, as needed for discomfort. You may continue to take [id number] Canby, 1 to 2 tablets, up to every 6 hours, as needed for pain not relieved by ibuprofen. If you feel that you need a stronger medicine than Canby, please contact your ENT, Dr. Ramakrishna Gavin. If any other problems, please do not hesitate to return to the ER. Sepsis Event Note (ED) - Evaluation Sepsis Screening Result: No Definite Risk - Focused Exam Vital Signs: Vital Signs Temp Pulse Resp BP Pulse Ox 03/13/20 00:04 37.0 C 56 L 20 110/63 100
== END 2020-03-13 02:25 | disposition home or self-care (01) ==
LOC: JD.ED 23:55
DX: G89.18 Other acute postprocedural pain (principal); R11.2 Nausea with vomiting, unspecified; Z88.1 Allergy status to other antibiotic agents; Z88.0 Allergy status to penicillin
CPT/HCPCS: 96361; 96374; 96375; 99283; J1170; J2405; J7030

== ENCOUNTER 2020-03-18 15:46 | Emergency (ER) | payer BC, OTHER ==
[2020-03-18] MEDS ORDERED: Ondansetron 4 MG/2 ML SDV IVPUSH ONE (16:31)
[2020-03-18] MEDS ORDERED: Sodium Chloride 0.9% 1,000 ML IV STA (16:31)
[2020-03-18] MEDS ORDERED: HYDROmorphone 0.5 MG/0.5 ML Syringe IVPUSH ONE (16:31)
[2020-03-18] MEDS ORDERED: Sodium Chloride 0.9% 10 ML Syringe FLUSH PRN (16:31)
--- NOTE | 2020-03-18 17:47 | EDM.PDOC ---
ED HPI GENERAL MEDICAL PROBLEM - General Chief Complaint: General Stated Complaint: DEHYDRATION AND LOST OF APPETITE POST SURGERY Time Seen by Provider: 03/18/20 15:50 Source of Information: Reports: Patient History Limitations: Reports: No Limitations - History of Present Illness INITIAL COMMENTS - FREE TEXT/NARRATIVE: Patient is a 19-year-old female presenting to the emergency department with complaints of throat pain, and likely dehydration. She had her tonsils removed approximately 1 week ago. States she has been using liquid hydrocodone as prescribed by her ENT doctor. She states that her pain is not getting better. She has not been able to eat solid foods for a week, however she is able to drink small amounts of water, however it feels like razor blades going down. She has not had a recurrence of vomiting thus far. She states she did talk to her ENT doctor last evening and they are sending her a prescription for refill on her hydrocodone as she only has a small amount left. They recommend that if symptoms not improved that she come to the ER to receive fluids and pain management. Patient denies any fever or chills. Has had no bleeding from her throat recently. Throat Pain Score (Numeric/FACES): 8 - Related Data Allergies Allergy/AdvReac Type Severity Reaction Status Date / Time amoxicillin Allergy Hives Verified 03/18/20 16:21 Penicillins Allergy Hives Verified 03/18/20 16:21 Home Meds: Home Meds Acetaminophen/HYDROcodone [Barker 325-10 MG] 1 tab PO Q6H #12 tablet 01/12/20 [Rx] Ibuprofen 600 mg PO Q6H #28 tablet 01/12/20 [Rx] Ondansetron [Zofran ODT] 1 tab PO Q8H PRN #10 tab.dis 03/13/20 [Rx] Promethazine [Phenergan] 0.5 ml TOP ASDIRECTED 03/13/20 [History] Past Medical History - Past Health History Medical/Surgical History: Denies Medical/Surgical History 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: Psychiatric History: Reports: Anxiety, Depression - Past Surgical History HEENT Surgical History: Reports: Adenoidectomy, Tonsillectomy GI Surgical History: Reports: Appendectomy Social & Family History - Family History Family Medical History: Noncontributory Cardiac: Reports: [place] Psychiatric: Reports: Depression - Tobacco Use Smoking Status *Q: Never Smoker Second Hand Smoke Exposure: No - Caffeine Use Caffeine Use: Reports: None - Recreational Drug Use Recreational Drug Use: Yes Recreational Drug Type: Reports: Marijuana/Hashish - Living Situation & Occupation Living situation: Reports: Single, with Significant Other (Boyfriend), with Family (Daughter) 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 ED EXAM, GENERAL - Physical Exam Exam: See Below General Appearance: Alert, WD/WN, No Apparent Distress Throat/Mouth: Other (Generalized redness to the oropharynx. No obvious scabs present. No active bleeding.) Respiratory/Chest: No Respiratory Distress, Lungs Clear, Normal Breath Sounds, No Accessory Muscle Use, Chest Non-Tender Cardiovascular: Normal Peripheral Pulses, Regular Rate, Rhythm, No Edema, No Gallop, No JVD, No Murmur, No Rub Neurological: Alert, Oriented, CN II-XII Intact, Normal Cognition, Normal Gait, Normal Reflexes, No Motor/Sensory Deficits Psychiatric: Normal Affect, Normal Mood Skin Exam: Warm, Dry, Intact, Normal Color, No Rash Course - Vital Signs Last Recorded V/S: Last Vital Signs Temp 97.6 F 03/18/20 16:16 Pulse 86 03/18/20 16:16 Resp 20 03/18/20 16:16 BP 113/76 03/18/20 16:16 Pulse Ox 99 03/18/20 16:16 - Orders/Labs/Meds Labs: Laboratory Tests 03/18/20 03/18/20 Range/Units 16:44 16:44 WBC 7.50 (3.98-10.04) K/mm3 RBC 4.94 (3.98-5.22) M/mm3 Hgb 13.7 (11.2-15.7) gm/dl Hct 40.7 (34.1-44.9) % MCV 82.4 (79.4-94.8) fl MCH 27.7 (25.6-32.2) pg MCHC 33.7 (32.2-35.5) g/dl RDW Std Deviation 40.1 (36.4-46.3) fL Plt Count 442 H (182-369) K/mm3 MPV 9.1 L (9.4-12.3) fl Neut % (Auto) 68.0 (34.0-71.1) % Lymph % (Auto) 23.6 (19.3-51.7) % [place] % (Auto) 6.8 (4.7-12.5) % Eos % (Auto) 1.2 (0.7-5.8) Baso % (Auto) 0.3 (0.1-1.2) % Neut # (Auto) 5.10 (1.56-6.13) K/mm3 Lymph # (Auto) 1.77 (1.18-3.74) K/mm3 [place] # (Auto) 0.51 H (0.24-0.36) K/mm3 Eos # (Auto) 0.09 (0.04-0.36) K/mm3 Baso # (Auto) 0.02 (0.01-0.08) K/mm3 Sodium 136 (136-145) mEq/L Potassium 3.6 (3.5-5.1) mEq/L Chloride 97 L (98-107) mEq/L Carbon Dioxide 25 (21-32) mEq/L Anion Gap 17.6 H (5-15) BUN 10 (7-18) mg/dL Creatinine 0.9 (0.55-1.02) mg/dL Est Cr Clr Drug Dosing 89.72 mL/min Estimated GFR (MDRD) > 60 (>60) mL/min BUN/Creatinine Ratio 11.1 L (14-18) Glucose 81 (74-106) mg/dL Calcium 9.5 (8.5-10.1) mg/dL Total Bilirubin 0.4 (0.2-1.0) mg/dL AST 16 (15-37) U/L ALT 14 (14-59) U/L Alkaline Phosphatase 93 (46-116) U/L C-Reactive Protein 7.6 H* (<1.0) mg/dL Total Protein 8.4 H (6.4-8.2) g/dl Albumin 3.7 (3.4-5.0) g/dl Globulin 4.7 gm/dL Albumin/Globulin Ratio 0.8 L (1-2) Meds: Medications Discontinued Medications Generic Name Dose Route Start Last Admin Trade Name Freq PRN Reason Stop Dose Admin Acetaminophen 650 mg 03/18/20 17:51 03/18/20 18:01 Tylenol PO 03/18/20 17:52 650 mg ONETIME ONE Administration Hydromorphone HCl 0.5 mg 03/18/20 16:31 03/18/20 16:53 Dilaudid IVPUSH 03/18/20 16:32 0.5 mg ONETIME ONE Administration Sodium Chloride 1,000 mls @ 999 mls/hr 03/18/20 16:31 03/18/20 16:51 Normal Saline IV 03/18/20 17:31 999 mls/hr NOW STA Administration Ondansetron HCl 4 mg 03/18/20 16:31 03/18/20 16:52 Zofran IVPUSH 03/18/20 16:32 4 mg ONETIME ONE Administration Sodium Chloride 10 ml 03/18/20 16:31 03/18/20 16:54 Saline Flush FLUSH 10 ml ASDIRECTED PRN Administration Keep Vein Open - Re-Assessments/Exams Free Text/Narrative Re-Assessment/Exam: 03/18/20 18:35 Hematology was significant for anion gap mildly elevated at 17.6, CRP 7.6. Was otherwise unremarkable. Patient is feeling somewhat better after her liter of IV fluids, Dilaudid, and Zofran. She does still have some of her hydrocodone liquid at home. States she is only taken 7.5 mL every 4 hours as otherwise it makes her sick. Based on this, she is only receiving 160 mg of Tylenol every 4 hours. I recommended that she begin taking liquid Tylenol 650 mg every 6 hours. When combined with her Barker, this will keep her under the recommended 4000 mg/day. Discussed different food options that may help her to get some form of nutrition such as Ensure shakes watered-down if needed to prevent phlegm formation. She is in agreement with this plan. Discharge instructions as documented. Departure - Departure Time of Disposition: 18:35 Disposition: Home, Self-Care 01 Condition: Good Clinical Impression: Post-tonsillectomy pain - Discharge Information *PRESCRIPTION DRUG MONITORING PROGRAM REVIEWED*: No *COPY OF PRESCRIPTION DRUG MONITORING REPORT IN PATIENT DAVID: No Instructions: Pain Relief Before and After Surgery Referrals: Jennifer Valle NEURO OPHTHALMOLOGIST [Primary Care Provider] - Forms: ED Department Discharge Additional Instructions: You were seen in the emergency department today for continued pain and dehydration after having her tonsils out 1 week ago. Blood work was completed in the ER and does show that you are mildly dehydrated but was otherwise normal. You while in the ER, you received a liter of IV fluids, pain and nausea medications. Recommend that you take liquid Tylenol 650 mg every 6 hours routinely. You may continue to use 7.5 mL of the hydrocodone with Tylenol prescribed by your ENT. Take in as much liquid as you can tolerate. As we discussed, you could try using Ensure shakes to get some form of nutrition and water them down with ice water as needed to prevent phlegm formation in the back of your throat. Follow-up with your ENT provider as currently scheduled. Return to the ER as needed. Sepsis Event Note (ED) - Evaluation Sepsis Screening Result: No Definite Risk
[2020-03-18] MEDS ORDERED: Acetaminophen 325 MG/10.15 ML ML PO ONE (17:51)
== END 2020-03-18 18:58 | disposition home or self-care (01) ==
LOC: JD.ED 15:46
DX: G89.18 Other acute postprocedural pain (principal); R07.0 Pain in throat; Z88.1 Allergy status to other antibiotic agents; Z88.0 Allergy status to penicillin
CPT/HCPCS: 36415; 80053; 85025; 86140; 96361; 96374; 96375; 99283; A9270; J1170; J2405; J7030